=== PATIENT | male | born 1960 | race Caucasian/White ===

== ENCOUNTER → 2020-08-24 | Outpatient (CLI) | payer OTHER ==
[~2020-08-24] MED LIST: ASPIRIN EC325 MG PO
== END ==
LOC: HEART CORB 08:36
DX: I25.10 Atherosclerotic heart disease of native coronary artery without angina pectoris (principal); R06.00 Dyspnea, unspecified; I20.8 Other forms of angina pectoris; Z94.0 Kidney transplant status
CPT/HCPCS: 78452; 93306; A9502; J2785

== ENCOUNTER → 2021-02-17 | Outpatient (CLI) | payer OTHER | LOC: EXRD 13:42 | DX: I99.8 Other disorder of circulatory system (principal); I73.9 Peripheral vascular disease, unspecified | CPT/HCPCS: 93922; 93925 ==

== ENCOUNTER → 2021-08-28 | Outpatient (CLI) | payer OTHER | LOC: HEART CORB 08:28 | DX: I12.0 Hypertensive chronic kidney disease with stage 5 chronic kidney disease or end stage renal disease (principal); N18.6 End stage renal disease; R94.31 Abnormal electrocardiogram [ECG] [EKG]; I25.10 Atherosclerotic heart disease of native coronary artery without angina pectoris; R06.00 Dyspnea, unspecified; Z99.2 Dependence on renal dialysis | CPT/HCPCS: 78452; 93306; A9502 ==

== ENCOUNTER → 2021-12-14 | Outpatient (CLI) | payer OTHER | LOC: HEART CORB 13:13 | DX: I25.5 Ischemic cardiomyopathy (principal); I08.1 Rheumatic disorders of both mitral and tricuspid valves; I27.20 Pulmonary hypertension, unspecified ==